=== PATIENT | male | born 1965 | race Caucasian/White ===

== ENCOUNTER 2020-02-18 14:10 | Emergency (ER) | payer OTHER ==
[~2020-02-18] VITALS: Ht 180.3 cm; Wt 74.8 kg
[2020-02-18 14:16] VITALS: BP 116/67
== END 2020-02-18 14:32 | disposition home or self-care (01) ==
LOC: ER 14:10
DX: Z11.59 Encounter for screening for other viral diseases (principal)
CPT/HCPCS: 99283; C9803; U0003

== ENCOUNTER 2020-02-28 13:17 | Emergency (ER) | payer OTHER ==
[~2020-02-28] VITALS: Ht 180.3 cm; Wt 74.8 kg
[2020-02-28 13:36] VITALS: BP 135/81
== END 2020-02-28 14:10 | disposition home or self-care (01) ==
LOC: ER 13:18
DX: Z03.818 Encounter for observation for suspected exposure to other biological agents ruled out (principal)
CPT/HCPCS: 99283; C9803; U0003

== ENCOUNTER 2020-03-06 12:11 | Emergency (ER) | payer OTHER ==
[~2020-03-06] VITALS: Ht 180.3 cm; Wt 74.8 kg
--- NOTE | 2020-03-06 12:38 | NUR ---
CALLED PT IN [place], NO ANSWER.
[2020-03-06 12:47] VITALS: BP 110/69
== END 2020-03-06 14:13 | disposition home or self-care (01) ==
LOC: ER 12:11
DX: Z03.818 Encounter for observation for suspected exposure to other biological agents ruled out (principal)
CPT/HCPCS: 99283; C9803; U0003

== ENCOUNTER 2020-03-13 14:21 | Emergency (ER) | payer OTHER ==
[~2020-03-13] VITALS: Ht 180.3 cm; Wt 74.8 kg
[2020-03-13 14:31] VITALS: BP 128/77
--- NOTE | 2020-03-13 14:43 | NUR ---
Patient discharged to home in stable condition. Written and verbal after care instructions given. Patient verbalizes understanding of instruction. Pt ambulatory with a steady gait
== END 2020-03-13 14:43 | disposition home or self-care (01) ==
LOC: ER 14:25
DX: Z11.59 Encounter for screening for other viral diseases (principal)
CPT/HCPCS: 99283; C9803; U0003

== ENCOUNTER 2020-03-20 08:20 | Emergency (ER) | payer OTHER ==
[~2020-03-20] VITALS: Ht 180.3 cm; Wt 74.8 kg
[2020-03-20 08:29] VITALS: BP 132/87
--- NOTE | 2020-03-20 21:49 | NUR ---
LAB CALLED REGARDING COVID NEGATIVE RESULT.
== END 2020-03-20 09:09 | disposition home or self-care (01) ==
LOC: ER 08:21
DX: Z03.818 Encounter for observation for suspected exposure to other biological agents ruled out (principal)
CPT/HCPCS: 99283; C9803; U0003

== ENCOUNTER 2020-03-27 08:56 | Emergency (ER) | payer OTHER ==
[~2020-03-27] VITALS: Ht 175.3 cm; Wt 68.0 kg
[2020-03-27 09:32] VITALS: BP 134/77
== END 2020-03-27 09:50 | disposition home or self-care (01) ==
LOC: ER 08:57
DX: Z11.59 Encounter for screening for other viral diseases (principal)
CPT/HCPCS: 99283; C9803; U0003

== ENCOUNTER 2020-04-03 09:03 | Emergency (ER) | payer OTHER ==
[~2020-04-03] VITALS: Ht 180.3 cm; Wt 77.1 kg
[2020-04-03 09:08] VITALS: BP 122/75
== END 2020-04-03 09:24 | disposition home or self-care (01) ==
LOC: ER 09:04
DX: Z20.828 Contact with and (suspected) exposure to other viral communicable diseases (principal)
CPT/HCPCS: 99283; C9803; U0003

== ENCOUNTER 2020-04-15 12:09 | Emergency (ER) | payer OTHER ==
[~2020-04-15] VITALS: Ht 180.3 cm; Wt 76.7 kg
[2020-04-15 12:13] VITALS: BP 125/82
--- NOTE | 2020-04-15 12:52 | NUR ---
COVID SWAB DONE AND SENT TO LAB
--- NOTE | 2020-04-15 12:52 | NUR ---
Patient discharged to home in stable condition. Written and verbal after care instructions given. Patient verbalizes understanding of instruction. Pt ambulatory with a steady gait
== END 2020-04-15 12:54 | disposition home or self-care (01) ==
LOC: ER 12:09
DX: Z20.828 Contact with and (suspected) exposure to other viral communicable diseases (principal)
CPT/HCPCS: 99283; C9803; U0003

== ENCOUNTER 2020-04-24 13:46 | Emergency (ER) | payer OTHER ==
[~2020-04-24] VITALS: Ht 180.3 cm; Wt 76.7 kg
[2020-04-24 13:48] VITALS: BP 125/61
== END 2020-04-24 14:44 | disposition home or self-care (01) ==
LOC: ER 13:47
DX: Z20.828 Contact with and (suspected) exposure to other viral communicable diseases (principal)
CPT/HCPCS: 99283; C9803; U0003

== ENCOUNTER 2020-05-15 09:29 | Emergency (ER) | payer OTHER ==
[~2020-05-15] VITALS: Ht 170.2 cm; Wt 68.0 kg
[2020-05-15 09:31] VITALS: BP 121/84
--- NOTE | 2020-05-16 04:18 | NUR ---
called pt [phone] for lab results. no one answered. vm left. waiting for call back.
--- NOTE | 2020-05-16 04:32 | NUR ---
second attempt. no answer.
--- NOTE | 2020-05-16 04:40 | NUR ---
3rd attempt to call pt for lab results. unable to leave voice mail.
== END 2020-05-15 09:53 | disposition home or self-care (01) ==
LOC: ER 09:30
DX: U07.1 COVID-19 (principal)
CPT/HCPCS: 99283; C9803; U0003

== ENCOUNTER 2022-05-19 09:40 | Emergency (ER) | payer OTHER ==
[~2022-05-19] VITALS: Ht 180.3 cm; Wt 79.4 kg
--- NOTE | 2022-05-19 09:50 | NUR ---
C/O RLQ PAIN X 4 DAYS AND LOW GRADE FEVER; ATE BREAKFAST AT 0830 THIS MORNING. TO ER BED 2.
--- NOTE | 2022-05-19 10:28 | NUR ---
URINE SAMPLE COLLECTED AND SENT TO LAB
--- NOTE | 2022-05-19 10:40 | NUR ---
IV LINE ESTABLISHED ON LAC #20, BLOOD DRAWN AND SENT TO LAB
--- NOTE | 2022-05-19 10:40 | NUR ---
PT TAKEN TO RADIOLOGY FOR CT
--- NOTE | 2022-05-19 11:05 | NUR ---
COVID SWAB COLLECTED AND SENT TO LAB
[2022-05-19 11:07] LABS: BASOPHILS # (AUTO) 0.1 K/uL (0.0-0.2); BASOPHILS % (AUTO) 0.5 % (0.0-2.0); EOSINOPHILS % (AUTO) 0.3 % (0.0-6.0); HEMATOCRIT 44 % (39-51); HEMOGLOBIN 14.7 g/dL (13.5-17.5); LYMPHOCYTES # (AUTO) 0.7 K/uL (0.8-4.8); LYMPHOCYTES % (AUTO) 7.9 % (20.0-44.0); MEAN CORPUSCULAR HGB CONC 33 g/dl (31.0-36.0); MEAN CORPUSCULAR VOLUME 88 fL (80-96); MONOCYTES # (AUTO) 0.6 K/uL (0.1-1.30); MONOCYTES % (AUTO) 5.8 % (2.0-12.0); NEUTROPHILS % (AUTO) 85.5 % (43.0-81.0); PLATELET COUNT (AUTO) 173 K/uL (150-450); RED BLOOD CELL COUNT(AUTO) 4.99 MIL/uL (4.5-6.0); WHITE BLOOD COUNT (AUTO) 9.4 K/uL (4.3-11.0)
[2022-05-19 11:13] LABS: BILIRUBIN,URINE NEGATIVE (NEGATIVE); COLOR,URINE YELLOW (YELLOW); LEUKOCYTE ESTERASE ,URINE NEGATIVE (NEGATIVE); NITRITE, URINE NEGATIVE (NEGATIVE); PROTEIN,URINE NEGATIVE (NEGATIVE); UGLUCOSE NEGATIVE (NEGATIVE)
[2022-05-19 11:20] LABS: ALANINE AMINOTRANSFERASE 27 U/L (12-78); ALBUMIN 3.6 g/dL (3.4-5.0); ALKALINE PHOSPHATASE 40 U/L (46-116); ASPARTATE AMINOTRANSFERASE 19 U/L (15-37); BILIRUBIN,DIRECT 0.2 mg/dL (0.0-0.2); BILIRUBIN,TOTAL 0.9 mg/dL (0.2-1.0); CALCIUM, SERUM 9.1 mg/dL (8.5-10.1); CARBON DIOXIDE 31 mmol/L (21-32); CHLORIDE 101 mmol/L (98-107); CREATININE 1.3 mg/dL (0.6-1.3); GLUCOSE 95 mg/dL (74-106); LIPASE 127 U/L (73-393); POTASSIUM 4.1 mmol/L (3.5-5.1); SODIUM SERUM 137 mmol/L (136-145); TOTAL PROTEIN, SERUM 7.2 g/dL (6.4-8.2); UREA NITROGEN, BLOOD 18 mg/dL (7-18)
--- NOTE | 2022-05-19 11:21 | NUR ---
DR CORDOVA CALLED. LEFT A MESSAGE. AWAITING CALL BACK.
[2022-05-19] MEDS ORDERED: LIOT25TA7 PO (11:39)
[2022-05-19] MEDS ORDERED: TEST200V3 IM (11:39)
[2022-05-19] MEDS ORDERED: SILO8CAP6 PO (11:39)
--- NOTE | 2022-05-19 11:49 | NUR ---
PT CURRENTLY KEPT NPO; LAST MEAL WAS AT 0830 PER PT. PER OR NURSE, KEEP PT NPO, DR CORDOVA PLANS TO DO SX AT 1500 TODAY.
[2022-05-19 11:50] LABS: BACTERIA,URINE Few /HPF (None Seen); RBC,URINE 0-2 /HPF (0-2); SQUAMOUS EPITHELIAL CELL,UR Moderate /HPF (None Seen); WBC,URINE 0-2 /HPF (0-3)
[2022-05-19] MEDS ORDERED: LIDOCAINE 1% INJ 50 ML MDV IJ ONE (12:27)
[2022-05-19] MEDS ORDERED: BUPIVACAINE MPF 0.5% W/EPI INJ 30 ML VIAL ONE (12:27)
--- NOTE | 2022-05-19 12:30 | NUR ---
DR. CORDOVA SPEAKING WITH DR. MARK.
--- NOTE | 2022-05-19 12:36 | NUR ---
ROOM 105
--- NOTE | 2022-05-19 13:57 | NUR ---
Stefani howard in ED - 05/19/22 at 1400 by TRANG Patient discharged to home in stable condition. Written and verbal after care instructions given. Patient verbalizes understanding of instruction.
--- NOTE | 2022-05-19 13:57 | NUR ---
IV removed. Catheter intact and site benign. Pressure and 4x4 applied to site. No bleeding noted.
--- NOTE | 2022-05-19 14:00 | NUR ---
Patient does not wish to proceed with medical care recommended by Dr. Keane. Patient given information related to possible complications, up to and including , which could occur as a result of leaving the hospital at this time. Patient verbalizes understanding of risks involved due to leaving against medical advice. Patient has signed AMA form.
[2022-05-19 14:05] VITALS: BP 132/66
== END 2022-05-19 14:06 | disposition left against medical advice (07) ==
LOC: ER 09:42 → MEDSG1 12:56 → UNDOADMIN 12:56
DX: K35.80 Unspecified acute appendicitis (principal); Z20.822 Contact with and (suspected) exposure to COVID-19; Z53.29 Procedure and treatment not carried out because of patient's decision for other reasons
CPT/HCPCS: 99285; 74176; 87426; 93005; 85025; 80048; 87086; 83690; 80076; 81001; 36415; 84484; J7042; A6403; C9803; J3490